=== PATIENT | male | born 1975 | race Two or more races ===

== ENCOUNTER 2016-08-21 18:42 | Emergency (ER) | payer OTHER ==
[~2016-08-21] VITALS: Ht 188 cm; Wt 102.1 kg
[2016-08-21 18:44] VITALS: BP 151/80
[2016-08-21] MEDS ORDERED: HYDROcodone/APAP 5/325 TABLET PO STA (19:25)
[2016-08-21] MEDS ORDERED: HYDROcodone/APAP 5/325 TABLET ONE (19:29)
== END 2016-08-21 20:17 | disposition home or self-care (01) ==
LOC: ED 20:08
DX: S83.412A Sprain of medial collateral ligament of left knee, initial encounter (principal); S09.93XA Unspecified injury of face, initial encounter; W01.0XXA Fall on same level from slipping, tripping and stumbling without subsequent striking against object, initial encounter; Y93.89 Activity, other specified; Y92.69 Other specified industrial and construction area as the place of occurrence of the external cause; Y99.0 Civilian activity done for income or pay
CPT/HCPCS: 99284